=== PATIENT | female | born 1995 | race Hispanic/Latino ===

== ENCOUNTER 2017-09-08 13:12 | Emergency (ER) | payer OTHER ==
[~2017-09-08] VITALS: Ht 160 cm; Wt 56.8 kg
[2017-09-08] MEDS ORDERED: PRENATA3 PO (13:24)
[2017-09-08 14:25] LABS: INFLUENZA A NONE DETECTED (NONE DETECT); INFLUENZA B NONE DETECTED (NONE DETECT)
[2017-09-08 14:41] VITALS: BP 116/68
== END 2017-09-08 14:45 | disposition home or self-care (01) | DRG 781 ==
LOC: ED 13:12
PROVIDERS: Emergency Medicine
DX: O98.511 Other viral diseases complicating pregnancy, first trimester (principal); H92.03 Otalgia, bilateral; R05 Cough; Z3A.12 12 weeks gestation of pregnancy; R11.2 Nausea with vomiting, unspecified; R09.81 Nasal congestion